=== PATIENT | male | born 1945 | race Caucasian/White ===

== ENCOUNTER 2024-10-21 05:19 | Day surgery (SDC) | payer OTHER, MEDICAID ==
[2024-10-21] MEDS ORDERED: RINGERS SOLUTION,LACTATED 500 ML IV ONE (05:31)
[2024-10-21] MEDS ORDERED: MOXIFLOXACIN HCL 0.5% 3 ML OPHTHALMIC SOLUTION ONE (05:31)
[2024-10-21] MEDS ORDERED: TROPICAMIDE 1% 2 ML OPHTHALMIC SOLUTION ONE (05:31)
[2024-10-21] MEDS ORDERED: KETOROLAC TROMETHAMINE 0.5% 5 ML OPHTHALMIC SOLUTION ONE (05:31)
[2024-10-21] MEDS ORDERED: PHENYLEPHRINE HCL 2.5% 2 ML OPHTHALMIC SOLUTION ONE (05:31)
[2024-10-21] MEDS: RINGERS SOLUTION,LACTATED 500 ML IV ONE (06:30)
[2024-10-21] MEDS: TROPICAMIDE 1% 2 ML OPHTHALMIC SOLUTION OS SCH (06:30)
[2024-10-21] MEDS: PHENYLEPHRINE HCL 2.5% 2 ML OPHTHALMIC SOLUTION OS SCH (06:30)
[2024-10-21] MEDS: KETOROLAC TROMETHAMINE 0.5% 5 ML OPHTHALMIC SOLUTION OS SCH (06:31)
[2024-10-21] MEDS: MOXIFLOXACIN HCL 0.5% 3 ML OPHTHALMIC SOLUTION OS SCH (06:32)
[2024-10-21 07:00] LABS: GLUCOMETER DEV NAME(LOC) SDS.; GLUCOSE,POINT OF CARE 139 MG/DL (70-110)
[2024-10-21] MEDS: BALANCED SALT 15 ML OPHTHALMIC IRRIG.SOLN ONE (07:20)
[2024-10-21] MEDS: POVIDONE-IODINE 5% 30 ML OPHTHALMIC SOLUTION ONE (07:20)
[2024-10-21] MEDS: TETRACAINE HCL/PF 0.5% 4 ML OPHTHALMIC SOLUTION ONE (07:20)
[2024-10-21] MEDS: LIDOCAINE/PF 1% 2 ML VIAL ONE (07:36)
[2024-10-21] MEDS: EPINEPHrine 1:1,000 [1 MG/ML] VIAL ONE (07:37)
[2024-10-21] MEDS ORDERED: CHONDR SULF A SOD/HYALURONATE 1.05 ML KIT IO ONE (12:00)
[2024-10-21] MEDS ORDERED: FentaNYL CITRATE PF 100 MCG/2 ML VIAL IVP ONE (12:00)
[2024-10-21] MEDS ORDERED: MIDAZOLAM HCL 2 MG/2 ML VIAL IVP ONE (12:00)
== END 2024-10-21 08:50 | disposition home or self-care (01) ==
LOC: SURGERY 05:19
PROVIDERS: ATTEND Ophthalmology
DX: E11.36 Type 2 diabetes mellitus with diabetic cataract (principal); H25.12 Age-related nuclear cataract, left eye; I10 Essential (primary) hypertension; E66.01 Morbid (severe) obesity due to excess calories; E78.00 Pure hypercholesterolemia, unspecified; G62.9 Polyneuropathy, unspecified; F03.90 Unspecified dementia, unspecified severity, without behavioral disturbance, psychotic disturbance, mood disturbance, and anxiety; M19.90 Unspecified osteoarthritis, unspecified site; Z86.718 Personal history of other venous thrombosis and embolism; Z79.84 Long term (current) use of oral hypoglycemic drugs; Z79.899 Other long term (current) drug therapy; Z98.890 Other specified postprocedural states
CPT/HCPCS: 66984; 82962; 93005; J7321; J0171; J3010; J3490; J2250; J7120; V2632